=== PATIENT | male | born 1955 | race Caucasian/White ===

== ENCOUNTER → 2019-02-17 | Outpatient (CLI) | payer OTHER ==
[~2019-02-17] MED LIST: CATAFLAM50 MG; FLEXERIL10 MG; TRAMADOL HCL25 GM; VASOTEC5 MG
== END | disposition home or self-care (01) ==
LOC: MRI 13:53
DX: M25.111 Fistula, right shoulder (principal); M47.22 Other spondylosis with radiculopathy, cervical region
CPT/HCPCS: 72141

== ENCOUNTER 2021-03-31 15:25 | Emergency (ER) | payer OTHER ==
[~2021-03-31] VITALS: Ht 167.6 cm; Wt 95.3 kg
== END 2021-03-31 18:36 | disposition home or self-care (01) ==
LOC: ER 15:25
DX: A05.9 Bacterial foodborne intoxication, unspecified (principal); R11.2 Nausea with vomiting, unspecified

== ENCOUNTER → 2021-05-11 | Outpatient (CLI) | payer OTHER | END | disposition home or self-care (01) | LOC: TOM 13:16 | DX: G30.8 Other Alzheimer's disease (principal) ==

== ENCOUNTER 2021-12-13 06:25 | Outpatient (CLI) | payer OTHER | END 2021-12-13 06:35 | disposition home or self-care (01) | LOC: SONOGRAMA 06:25 | DX: R10.9 Unspecified abdominal pain (principal); R94.5 Abnormal results of liver function studies ==

== ENCOUNTER 2022-02-22 14:38 | Outpatient (CLI) | payer OTHER | END 2022-02-22 14:46 | disposition home or self-care (01) | LOC: RAD 14:38 | DX: M25.511 Pain in right shoulder (principal) ==

== ENCOUNTER 2022-05-31 07:10 | Outpatient (CLI) | payer OTHER | END 2022-05-31 15:36 | disposition home or self-care (01) | LOC: RAD 07:10 | PROVIDERS: ATTEND Internal Medicine Gastroenterology | DX: R13.10 Dysphagia, unspecified (principal) ==

== ENCOUNTER → 2022-12-09 | Outpatient (CLI) | payer OTHER | END | disposition home or self-care (01) | LOC: MRI 10:04 | DX: M75.121 Complete rotator cuff tear or rupture of right shoulder, not specified as traumatic (principal) | CPT/HCPCS: 73221 ==

== ENCOUNTER 2023-10-23 11:55 | Outpatient (CLI) | payer OTHER | END 2023-10-23 12:01 | disposition home or self-care (01) | LOC: RAD 11:55 | PROVIDERS: ATTEND Internal Medicine Pulmonary Disease | DX: M43.6 Torticollis (principal) ==

== ENCOUNTER 2025-02-21 14:35 | Emergency (ER) | payer OTHER ==
[~2025-02-21] VITALS: Ht 165.1 cm; Wt 81.6 kg
[2025-02-21] MEDS ORDERED: LIDOCAINE HCL 1% 10ML VIAL ONE (16:42)
[2025-02-21] MEDS ORDERED: LIDOCAINE HCL 1% 10ML VIAL PERCUT ONE (16:45)
[2025-02-21] MEDS ORDERED: CEFTRIAXONE SODIUM 1,000 MG VIAL IM ONE (16:45)
[2025-02-21] MEDS ORDERED: TETANUS & DIPHTHERIA TOX,ADULT 0.5 ML VIAL IM ONE (16:45)
[2025-02-21] MEDS ORDERED: DIPHTH,PERTUSS(ACELL),TET VAC 0.5 ML SYRINGE IM ONE (16:47)
[2025-02-21] MEDS ORDERED: CEFTRIAXONE SODIUM 1,000 MG VIAL ONE (16:47)
[2025-02-21] MEDS ORDERED: DUI500 PO (17:09)
== END 2025-02-21 18:30 | disposition home or self-care (01) ==
LOC: ER 14:35
DX: S61.217A Laceration without foreign body of left little finger without damage to nail, initial encounter (principal); W45.8XXA Other foreign body or object entering through skin, initial encounter; Y93.89 Activity, other specified; Y92.89 Other specified places as the place of occurrence of the external cause; Y99.8 Other external cause status; I10 Essential (primary) hypertension; E11.9 Type 2 diabetes mellitus without complications; Z88.1 Allergy status to other antibiotic agents
CPT/HCPCS: 12001; 90471; 90714; 96372; 99282; J0696; J1670

== ENCOUNTER 2025-03-07 09:17 | Outpatient (CLI) | payer OTHER ==
[~2025-03-07 09:17] MED LIST changes: +DUI500 PO
[2025-03-07 12:34] LABS: ALBUMIN 3.8 gm/dL (3.4-5.0); BILIRUBIN TOTAL 0.92 mg/dL (0.3-1.2); CALCIUM 9.4 mg/dL (8.5-10.1); CHOL HDL RATIO 2.4 (0-5.0); CREATININE SERUM 0.92 mg/dL (0.70-1.30); GFR 81.57; GLOBULINA 3.7 G/DL (2.4-3.5); POTASSIUM 4.61 mEq/L (3.5-5.1); PROSTATIC SPECIFIC ANTIGEN 1.08 NG/ML (0.010-4.00); T4 TOTAL 10.43 UG/DL (4.5-12.1); TOTAL PROTEIN 7.5 gm/dL (6.4-8.2); TSH 3.07 uIU/mL (0.358-3.74)
[2025-03-07 12:40] LABS: T3 TOTAL 1.59 ng/ml (0.846-2.02); VITAMIN D3 25 HYDROXY 33.99 ng/ml (30-120)
[2025-03-07 15:49] LABS: BASO % 0.4 % (0.1-1.2); EOS # 0.11 (0.04-0.54); EOS % 1.9 % (0.7-7.0); HEMATOCRIT 38.8 % (40.1-51.0); HEMOGLOBIN 13.2 g/dL (13.7-17.5); LYMPH # 1.03 (1.18-3.74); MEAN CORPUSCULAR HEMOGLOBIN 31.7 pg (25.6-32.2); MONO # 0.63 (0.24-0.82); NEUT % 68.3 % (34.0-71.1); PLATELET COUNT 173 K/uL (163-369); RED BLOOD COUNT 4.17 M/uL (4.63-6.08); RED CELL DISTRIBUTION WIDTH 12.6 % (11.6-14.4)
== END 2025-03-07 09:27 | disposition home or self-care (01) ==
LOC: EDBD 09:17 → LAB 09:17
PROVIDERS: ATTEND Internal Medicine Cardiovascular Disease
DX: E11.9 Type 2 diabetes mellitus without complications (principal); I10 Essential (primary) hypertension; E03.9 Hypothyroidism, unspecified; E78.2 Mixed hyperlipidemia; D64.0 Hereditary sideroblastic anemia; Z12.11 Encounter for screening for malignant neoplasm of colon; N40.0 Benign prostatic hyperplasia without lower urinary tract symptoms; E55.9 Vitamin D deficiency, unspecified; M81.0 Age-related osteoporosis without current pathological fracture

== ENCOUNTER 2025-03-07 10:20 | Outpatient (CLI) | payer OTHER | END 2025-03-07 10:29 | disposition home or self-care (01) | LOC: TOM 10:20 | PROVIDERS: ATTEND Internal Medicine Cardiovascular Disease | DX: G30.9 Alzheimer's disease, unspecified (principal) ==

== ENCOUNTER 2025-03-18 14:01 | Outpatient (CLI) | payer OTHER | END 2025-03-18 14:06 | disposition home or self-care (01) | LOC: LAB 14:01 | PROVIDERS: ATTEND Internal Medicine Cardiovascular Disease | DX: I10 Essential (primary) hypertension (principal); E11.9 Type 2 diabetes mellitus without complications; D64.0 Hereditary sideroblastic anemia; Z12.11 Encounter for screening for malignant neoplasm of colon ==

== ENCOUNTER 2025-06-24 10:46 | Outpatient (CLI) | payer OTHER | END 2025-06-27 10:05 | disposition home or self-care (01) | LOC: SONOGRAMA 10:46 | PROVIDERS: ATTEND Internal Medicine Cardiovascular Disease | DX: R10.9 Unspecified abdominal pain (principal) ==

== ENCOUNTER 2025-08-12 13:00 | Outpatient (CLI) | payer OTHER | END 2025-08-12 13:27 | disposition home or self-care (01) | LOC: MRI 13:00 | PROVIDERS: ATTEND Psychiatry & Neurology Clinical Neurophysiology | DX: G30.0 Alzheimer's disease with early onset (principal); F01.50 Vascular dementia, unspecified severity, without behavioral disturbance, psychotic disturbance, mood disturbance, and anxiety | CPT/HCPCS: 70551 ==